=== PATIENT | male | born 1945 | race Caucasian/White ===

== ENCOUNTER 2023-04-16 10:30 | Outpatient (CLI) | payer MEDICARE, SELFPAY ==
--- NOTE | 2023-04-16 11:00 | ECG_ITS ---
Measurements Intervals Sylvester Rate: 65 P: -9 OR: 174 QRS: -8 QRSD: 107 T: 31 QT: 354 QTc: 371 Interpretive Statements SINUS RHYTHM PREVIOUS iNFERIOR MYOCARDIAL INFARCTION ABNORMAL ECG NO PREVIOUS ECG AVAILABLE FOR COMPARISON Electronically Signed On 04-17-2023 12:41:35 CDT by Von Altman M.D.
== END 2023-04-16 10:31 | disposition home or self-care (01) ==
LOC: ANHSURGERY 10:36
PROVIDERS: PCP Pediatrics; Visit Provider Orthopaedic Surgery
DX: I10 Essential (primary) hypertension (principal); Z01.818 Encounter for other preprocedural examination; R94.31 Abnormal electrocardiogram [ECG] [EKG]
CPT/HCPCS: 93005

== ENCOUNTER 2023-04-27 03:03 | Day surgery (SDC) | payer MEDICARE, SELFPAY ==
[2023-04-15 14:17] VITALS: BMI 32.0
--- NOTE | 2023-04-15 14:19 | PC.NURSE ---
Report to the Outpatient Waiting Room, entrance under the green pavilion located off [facility], at time _0630_ on date _[id number]_. Planned Procedure Time: _0830_. Time changes happen often and if your time is changed the preop area will call you the afternoon before. - You and your visitor will be asked to self-screen and do not enter if you have any COVID symptoms. - A mask is optional within the hospital at this time. Patients may have clear liquids (water, carbonated beverages, clear teas, apple juice) until 3 hours prior to surgery with a maximum of 20 ounces. - No food from midnight until time of surgery Take the following medications with a SIP of water the morning of surgery: ___Carvidilol DO NOT STOP ANY OF YOUR OTHER PRESCRIPTION MEDICATIONS PRIOR TO SURGERY ?EXCEPT THE FOLLOWING Medications to discontinue per physician None Date to take last dose Please no make-up, nail mauritanian, hairspray, perfume, deodorant, or body powder the day of surgery. No jewelry (including any body piercings) or valuables the day of surgery, leave them at home. Please take a shower or bath the night before, or the morning of, surgery with an antibacterial soap. Wear comfortable, loose fitting clothing. - Jewelry must be removed prior to entering the operating room. Rings and piercings that are not removed may be cut off. - The hospital will not accept responsibility for valuables. - Please leave all valuables, including medications, at home the day of surgery. If you are going home after surgery, a licensed yard driver must drive you home. - NO public transportation without another adult if you receive anesthesia. - We recommend that an adult stay with you for 24 hours following discharge. - We also recommend that you do not drive, make important decision, drink alcoholic beverages, or take any drugs that were not prescribed by your health care provider for at least 24 hours after your discharge time. Follow any additional instructions given to you from your surgeon. If you or anyone in your household have experienced Covid symptoms in the past week, please notify your surgeon or the nurse liaison at the phone number below for possible testing. Telephone instructions given to _Patient__and asked if any additional questions and then verbalized understanding. Patient advised to call surgeon office or pre surgery nurse liaison [phone] if any additional questions.
[2023-04-27] VITALS (8 sets, daily range): BP systolic 88–157; BP diastolic 42–72; PULSE 52–69; RESP 12–20; TEMP 36.3–36.4; O2SAT 96–100
[2023-04-27] MEDS: KETOROLAC 15 MG/ML VIAL (*BKC) IV PUSH (08:26)
[2023-04-27] MEDS: ACETAMINOPHEN 500 MG TABLET 1000 MG PO (08:26)
--- NOTE | 2023-04-27 08:34 | WPDANESEPPF ---
Anes - Initial Pre Proc Eval Procedure: Operation Date: 04/27/23 10:00 Proposed Procedures p Excision Right Prepatellar Bursa - Segun Martin MD Date/Time: 04/27/23 08:34 Surgeon: Segun Martin MD Pre Op Diagnosis: prepatellar bursa right Patient Data Age: 78 Gender: M Height: 1.73 m Weight: 99.6 kg Last Vital Signs Temp 36.4 C L 04/27/23 07:58 Pulse 69 04/27/23 07:58 Resp 18 04/27/23 07:58 BP 157/69 H 04/27/23 07:58 Pulse Ox 96 04/27/23 07:58 O2 Del Method Room Air 04/27/23 07:58 Allergies Allergy/AdvReac Type Severity Reaction Status Date / Time No Known Allergies Allergy Verified 04/16/23 09:58 Home Medications Medication Instructions Recorded Confirmed Type aspirin 81 mg capsule 81 mg PO DAILY 03/12/23 04/16/23 History carvedilol 3.125 mg tablet 3.125 mg PO Q12H 03/12/23 04/16/23 History ezetimibe 10 mg tablet 10 mg PO DAILY 03/12/23 04/16/23 History lisinopril 40 mg tablet 40 mg PO DAILY 03/12/23 04/16/23 History rosuvastatin 40 mg tablet 40 mg PO DAILY 03/12/23 04/16/23 History Patient hx anesthesia problems: none Family hx anesthesia problems: none Results Review: All pre-operative results and documents have been reviewed as part of the pre-operative evaluation. [facility] Past Medical History Medical History Hyperlipidemia Hypertension Prepatellar bursitis, right knee Surgical History Surgical History History of back surgery 2003 History of heart bypass surgery 2008 History of hernia repair 2008 Family History Family History Mother Heart disease Father Heart disease Social History Social History Smoking status: Never smoker Alcohol intake: never Substance use: never Lack of Transportation: No Lack of Food: Never True Current Housing: I Have Housing Concerned About Future Housing: No Difficulty Paying Gas/Electric Bills: No Difficulty Paying for Meds: No Currently Unemployed: No Education: High School Diploma/GED Difficulty w/ Childcare or Family Care: No Living arrangements: with family Occupation/Education: retired Spiritual care concerns: No Anes - Eval Final PreProcedure Day of Procedure 04/27/23 08:34 Patient weight: obese Heart: regular rate and rhythm Lungs: clear to auscultation Airway: Mallampati scale class II Neurological: alert and oriented Last oral intake: >/= 8 hours ASA classification: III Emergent: no Anesthetic plan: proceed Anesthesia type and monitoring: general LMA and standard monitoring Results Review: All pre-operative results and documents have been reviewed as part of the pre-operative evaluation. Informed Consent: The patient's anesthetic plan and its attendant risks and benefits were discussed with the patient/family/POA. Questions were solicited and answers provided to the satisfaction of the patient/family/POA.
--- NOTE | 2023-04-27 09:28 | WPDHPUPDATE1 ---
History and Physical Update Update Date/Time: 04/27/23 09:28 History and Physical has been reviewed, including an updated exam of the patient. There are NO changes in the patient's condition. Risks, benefits, and alternatives have been discussed and questions answered. Patient agrees to proceed with procedure.
[2023-04-27] MEDS: ceFAZolin 2 GM/D5W 50 ML 2 GM/50 ML BAG IVPB (10:00)
[2023-04-27] MEDS: BUPIVACAINE/EPINEPHRINE 0.25% 50 ML VIAL 10 ML INFILTRATE (10:22)
[2023-04-27] MEDS: LACTATED RINGERS 1,000 ML 30 ML IV CONT (10:51)
--- NOTE | 2023-04-27 11:34 | P.OP_ITS ---
Procedure Note - Detailed Date of Procedure 04/27/23 Pre-op Diagnosis prepatellar bursa right Post-op Diagnosis Same Procedure Performed excision right prepatellar bursa with removal patellar osteophyte Surgeon Segun Martin MD [employer] Keith Camara Anesthesia General Description of Procedure The patient was identified and proper site identified. He was taken to the operating room and transferred to the OR table placing him supine taking care to pad his torso and extremities. After general anesthetic induction and intubation a nonsterile tourniquet was placed high on the right thigh. Right lower extremities prepped and draped in the usual sterile fashion. Longitude incision was made over the anterior portion of the right patella. Subcutaneous tissue sharply dissected down to the bursa. Bursectomy was performed. The patellar osteophyte was removed. It looked somewhat like an osteochondroma. It was sent for histopathologic examination. The wound was irrigated with sterile saline. Hemostasis carried out. Skin edges reapproximated with 3-0 Monocryl, 2-0 Quill and tissue adhesive. Sterile compressive dressing was applied. Tourniquet was released. Estimated blood loss was negligible. He received perioperative antibiotics. Estimated Blood Loss 2 Tourniquet Time 31 Drains No Packing No Pathology Yes ( Patellar bony lesion - ? osteochondroma) Complications No immediate complications Condition Stable Disposition PACU [facility] Billing Surgery - Charge Forward: Surgery Billing ([id number])
== END 2023-04-27 12:35 | disposition home or self-care (01) ==
PROVIDERS: PCP Pediatrics; Visit Provider Orthopaedic Surgery
PROC: (CPT 27340; principal; 2023-04-27 10:00)
DX: M70.41 Prepatellar bursitis, right knee (principal); E78.5 Hyperlipidemia, unspecified; I10 Essential (primary) hypertension; Z79.82 Long term (current) use of aspirin; E66.9 Obesity, unspecified; Z68.33 Body mass index [BMI] 33.0-33.9, adult
CPT/HCPCS: 27340; 88309; 88311; 97161; A9270; J0690; J1100; J1885; J2405; J2704; J3010; J7120